=== PATIENT | female | born 1995 | race African-American/Black ===

== ENCOUNTER 2018-10-13 06:36 | Emergency (ER) | payer OTHER ==
[~2018-10-13] VITALS: Ht 167.6 cm; Wt 59.0 kg
[2018-10-13] MEDS ORDERED: ONDANSETRON HCL 4MG/2ML INJ IV STA (08:42)
[2018-10-13] MEDS ORDERED: DICYCLOMINE HCL 10MG CAPSULE PO ONE (08:45)
[2018-10-13] MEDS ORDERED: SODIUM CHLORIDE 0.9% 1,000 ML IV ONE (09:15)
[2018-10-13 09:33] LABS: CLARITY URINE CLOUDY (CLEAR); COLOR URINE YELLOW (YELLOW); KETONES URINE 1+ (NEGATIVE); LEUKOCYTE ESTERASE URINE 1+ (NEGATIVE); NITRITE URINE POSITIVE (NEGATIVE); OCCULT BLOOD URINE NEGATIVE (NEGATIVE); PH URINE 8.5 (4.5-8.0); PROTEIN URINE NEGATIVE (NEGATIVE); UROBILINOGEN URINE 0.2 E.U./dL (0.2-1.0)
[2018-10-13 09:35] LABS: BASOPHILS % 0.4 % (0.0-2.0); EOSINOPHILS % 1.8 % (0.0-5.0); HEMATOCRIT. 35.1 % (36.0-48.0); HEMOGLOBIN. 11.6 g/dL (12.0-16.0); LYMPHOCYTES % 21.6 % (20.0-50.0); MEAN CORPUSCULAR VOLUME 93.9 fL (81.0-99.0); MEAN PLATELET VOLUME 9.3 fl (7.4-10.4); MONOCYTES % 9.9 % (2.0-8.0); NEUTROPHILS % 66.3 % (40.0-76.0); PLATELET 257 x1000/uL (130-400); RED BLOOD CELL COUNT 3.74 mill/uL (4.2-5.4); RED CELL DISTRIBUTION WIDTH 14.3 % (11.6-14.6)
[2018-10-13 09:37] LABS: CHLORIDE 106 mEq/L (98-107)
[2018-10-13 09:38] LABS: PROTHROMBIN TIME 9.8 sec (9.6-11.0)
[2018-10-13 09:42] LABS: HCG SCREEN NEGATIVE
[2018-10-13] MEDS ORDERED: CEFTRIAXONE SODIUM 250 MG/VIAL IV ONE (10:45)
[2018-10-13 11:58] VITALS: BP 109/70
== END 2018-10-13 11:59 | disposition home or self-care (01) ==
LOC: ER 06:36
DX: N39.0 Urinary tract infection, site not specified (principal); A59.9 Trichomoniasis, unspecified
CPT/HCPCS: 36415; 80053; 81003; 81025; 83690; 84703; 85025; 85610; 87077; 87086; 87186; 96361; 96365; 96375; 99283; J0696; J2405; J7030; Z7610

== ENCOUNTER 2019-03-23 12:00 | Emergency (ER) | payer MEDICAID, OTHER ==
[~2019-03-23] VITALS: Ht 162.6 cm; Wt 66.0 kg
[2019-03-23] MEDS ORDERED: ONDANSETRON HCL 4MG/2ML INJ IV STA (12:33)
[2019-03-23] MEDS ORDERED: MORPHINE SULFATE 4 MG/ML CPJ (NOT FOR IM USE) IV STA (12:33)
[2019-03-23] MEDS ORDERED: SODIUM CHLORIDE 0.9% 1,000 ML IV ONE (12:33)
[2019-03-23 13:42] LABS: BASOPHILS % 0.7 % (0.0-2.0); HEMOGLOBIN. 11.9 g/dL (12.0-16.0); LYMPHOCYTES % 19.3 % (20.0-50.0); MEAN CORPUSCULAR VOLUME 96.7 fL (81.0-99.0); MEAN PLATELET VOLUME 8.3 fl (7.4-10.4); MONOCYTES % 7.3 % (2.0-8.0); NEUTROPHILS % 71.7 % (40.0-76.0); PLATELET 256 x1000/uL (130-400); RED BLOOD CELL COUNT 3.73 mill/uL (4.2-5.4); RED CELL DISTRIBUTION WIDTH 14.1 % (11.6-14.6)
[2019-03-23] MEDS ORDERED: MORPHINE SULFATE 4 MG/ML CPJ (NOT FOR IM USE) IV ONE (13:45)
[2019-03-23 13:54] LABS: CHLORIDE 111 mEq/L (98-107)
[2019-03-23 14:05] LABS: HCG SCREEN NEGATIVE
[2019-03-23 14:22] LABS: CLARITY URINE CLEAR (CLEAR); COLOR URINE YELLOW (YELLOW); KETONES URINE NEGATIVE (NEGATIVE); LEUKOCYTE ESTERASE URINE NEGATIVE (NEGATIVE); NITRITE URINE NEGATIVE (NEGATIVE); OCCULT BLOOD URINE 3+ (NEGATIVE); PH URINE 8.5 (4.5-8.0); PROTEIN URINE NEGATIVE (NEGATIVE); SPECIFIC GRAVITY URINE 1.018 (1.005-1.030)
[2019-03-23] MEDS ORDERED: IOHEXOL-300 100 ML BOTTLE ONE (15:15)
[2019-03-23 16:05] VITALS: BP 110/62
== END 2019-03-23 16:40 | disposition home or self-care (01) ==
LOC: ER 12:00
DX: R10.0 Acute abdomen (principal); R11.2 Nausea with vomiting, unspecified; R19.7 Diarrhea, unspecified; R03.0 Elevated blood-pressure reading, without diagnosis of hypertension
CPT/HCPCS: 36415; 74177; 80053; 81003; 81025; 83690; 84703; 85025; 96361; 96374; 96375; 96376; 99284; J2270; J2405; J7030; Q9967; Z7610

== ENCOUNTER 2019-05-15 13:33 | Emergency (ER) | payer MEDICAID ==
[~2019-05-15] VITALS: Ht 170.2 cm; Wt 59.0 kg
[2019-05-15] MEDS ORDERED: SODIUM CHLORIDE 0.9% 1,000 ML IV ONE ×2 (14:42→14:45)
[2019-05-15] MEDS ORDERED: ONDANSETRON HCL 4MG/2ML INJ IV STA (14:42)
[2019-05-15] MEDS ORDERED: FAMOTIDINE 20MG/2ML VIAL IV ONE (14:45)
[2019-05-15] MEDS ORDERED: LORAZEPAM 2MG/ML CPJ IV ONE (14:45)
[2019-05-15 14:54] LABS: CLARITY URINE TURBID (CLEAR); COLOR URINE AMBER (YELLOW); KETONES URINE TRACE (NEGATIVE); LEUKOCYTE ESTERASE URINE 2+ (NEGATIVE); NITRITE URINE NEGATIVE (NEGATIVE); OCCULT BLOOD URINE 2+ (NEGATIVE); PROTEIN URINE 1+ (NEGATIVE); SPECIFIC GRAVITY URINE 1.024 (1.005-1.030)
[2019-05-15 14:58] LABS: BASOPHILS % 0.4 % (0.0-2.0); EOSINOPHILS % 0.6 % (0.0-5.0); HEMATOCRIT. 36.3 % (36.0-48.0); HEMOGLOBIN. 12.1 g/dL (12.0-16.0); LYMPHOCYTES % 16.6 % (20.0-50.0); MEAN CORPUSCULAR HEMOGLOBIN 31.5 pg (28.0-32.0); MEAN CORPUSCULAR VOLUME 94.8 fL (81.0-99.0); MEAN PLATELET VOLUME 9.2 fl (7.4-10.4); NEUTROPHILS % 72.4 % (40.0-76.0); PLATELET 267 x1000/uL (130-400); RED BLOOD CELL COUNT 3.83 mill/uL (4.2-5.4); RED CELL DISTRIBUTION WIDTH 13.4 % (11.6-14.6)
[2019-05-15 15:04] LABS: CHLORIDE 106 mEq/L (98-107)
[2019-05-15 15:10] LABS: ETHANOL BLOOD < 10 mg/dL
[2019-05-15 15:14] LABS: CREATINE KINASE 303 IU/L (26-192)
[2019-05-15 15:15] LABS: HCG SCREEN NEGATIVE
[2019-05-15 15:17] LABS: CREATINE KINASE MB FRACTION 2.1 ng/mL (0.5-3.6)
[2019-05-15 15:23] LABS: METHADONE URINE SCREEN NEGATIVE (NEGATIVE); OPIATES URINE SCREEN NEGATIVE (NEGATIVE)
[2019-05-15 15:24] LABS: *AMPHETAMINES SCREEN URINE NEGATIVE (NEGATIVE); *BARBITURATES SCREEN URINE NEGATIVE (NEGATIVE); *BENZODIAZEPINES SCREEN URINE NEGATIVE (NEGATIVE); *COCAINE SCREEN URINE NEGATIVE (NEGATIVE); PHENCYCLIDINE URINE SCREEN NEGATIVE (NEGATIVE)
[2019-05-15 15:38] LABS: CANNABINOID URINE SCREEN PRESUMTIVE POSITIVE (NEGATIVE)
[2019-05-15] MEDS ORDERED: KETOROLAC 30MG/ML VIAL IV ONE (16:45)
[2019-05-15] MEDS ORDERED: MORPHINE SULFATE 4 MG/ML CPJ (NOT FOR IM USE) IV ONE (16:45)
[2019-05-15] MEDS ORDERED: ONDANSETRON HCL 4MG/2ML INJ IV ONE (16:45)
[2019-05-15] MEDS ORDERED: CEFTRIAXONE 1 G PREMIX 50 ML IV ONE (17:45)
[2019-05-15 18:32] VITALS: BP 101/65
== END 2019-05-15 18:39 | disposition home or self-care (01) ==
LOC: ER 13:33
DX: N39.0 Urinary tract infection, site not specified (principal); R10.33 Periumbilical pain
CPT/HCPCS: 36415; 71045; 74176; 80053; 80305; 80320; 81003; 81025; 82550; 82553; 83690; 84443; 84703; 85025; 93005; 96361; 96365; 96375; 96376; 99284; J0696; J1885; J2060; J2270; J2405; J3490; J7030; G0480

== ENCOUNTER 2022-10-24 12:20 | Emergency (ER) | payer MEDICAID ==
[~2022-10-24] VITALS: Ht 165.1 cm; Wt 75.0 kg
[2022-10-24 12:21] VITALS: BP 119/87
[2022-10-24 13:14] LABS: BASOPHILS % 0.9 % (0.0-2.0); EOSINOPHILS % 1.6 % (0.0-5.0); HEMOGLOBIN. 12.3 g/dL (12.0-16.0); LYMPHOCYTES % 17.2 % (20.0-50.0); MEAN CORPUSCULAR HEMOGLOBIN 30.9 pg (28.0-32.0); MEAN CORPUSCULAR VOLUME 93.1 fL (81.0-99.0); MEAN PLATELET VOLUME 8.1 fl (7.4-10.4); MONOCYTES % 7.2 % (2.0-8.0); NEUTROPHILS % 73.1 % (40.0-76.0); PLATELET 360 x1000/uL (130-400); RED BLOOD CELL COUNT 3.97 mill/uL (4.2-5.4); RED CELL DISTRIBUTION WIDTH 14.1 % (11.6-14.6)
[2022-10-24 13:20] LABS: CHLORIDE 105 mEq/L (98-107)
[2022-10-24 13:36] LABS: HCG SCREEN NEGATIVE
== END 2022-10-24 14:19 | disposition left against medical advice (07) ==
LOC: ER 12:20
DX: Z53.21 Procedure and treatment not carried out due to patient leaving prior to being seen by health care provider (principal)
CPT/HCPCS: 36415; 80053; 84703; 85025; 99281

== ENCOUNTER 2022-11-08 02:08 | Emergency (ER) | payer MEDICAID ==
[~2022-11-08] VITALS: Ht 162.6 cm; Wt 70.8 kg
[2022-11-08 02:19] VITALS: BP 107/74
[2022-11-08 03:31] LABS: BASOPHILS % 0.8 % (0.0-2.0); EOSINOPHILS % 0.1 % (0.0-5.0); HEMOGLOBIN. 10.9 g/dL (12.0-16.0); LYMPHOCYTES % 12.8 % (20.0-50.0); MEAN CORPUSCULAR VOLUME 93.7 fL (81.0-99.0); MEAN PLATELET VOLUME 9.1 fl (7.4-10.4); MONOCYTES % 9.4 % (2.0-8.0); NEUTROPHILS % 76.9 % (40.0-76.0); PLATELET 287 x1000/uL (130-400); RED BLOOD CELL COUNT 3.53 mill/uL (4.2-5.4); RED CELL DISTRIBUTION WIDTH 14.3 % (11.6-14.6)
[2022-11-08 03:38] LABS: CHLORIDE 108 mEq/L (98-107)
[2022-11-08 03:48] LABS: CLARITY URINE CLOUDY (CLEAR); COLOR URINE YELLOW (YELLOW); KETONES URINE 2+ (NEGATIVE); LEUKOCYTE ESTERASE URINE NEGATIVE (NEGATIVE); NITRITE URINE NEGATIVE (NEGATIVE); OCCULT BLOOD URINE 2+ (NEGATIVE); PROTEIN URINE 1+ (NEGATIVE); SPECIFIC GRAVITY URINE 1.034 (1.005-1.030)
[2022-11-08] MEDS ORDERED: KETOROLAC 30MG/ML VIAL IM ONE (05:00)
[2022-11-08] MEDS ORDERED: ONDANSETRON 4MG ODT PO ONE (05:00)
[2022-11-08] MEDS ORDERED: ACETAMINOPHEN 325MG TABLET PO ONE (05:30)
[2022-11-08] MEDS ORDERED: PANTOPRAZOLE 40MG DR TABLET PO ONE (05:30)
[2022-11-08] MEDS ORDERED: FAMO-135 MT (11:28)
[2022-11-08] MEDS ORDERED: ONDA4TAB11 PO (11:28)
== END 2022-11-08 06:21 | disposition left against medical advice (07) ==
LOC: ER 02:08
DX: R11.2 Nausea with vomiting, unspecified (principal)
CPT/HCPCS: 36415; 80053; 81003; 83690; 85025; 87086; 87186; 96372; 99283; J1885

== ENCOUNTER 2022-11-08 09:45 | Emergency (ER) | payer MEDICAID ==
[~2022-11-08] VITALS: Ht 160 cm; Wt 55.0 kg
[2022-11-08 09:50] VITALS: BP 118/72
[2022-11-08] MEDS ORDERED: ONDANSETRON 4MG ODT PO ONE (10:15)
[2022-11-08] MEDS ORDERED: MAGNESIUM/ALUMINUM HYDROXIDE/SIMETHICONE 30ML UDC PO ONE (10:15)
[2022-11-08] MEDS ORDERED: FAMOTIDINE 20MG TABLET PO ONE (10:15)
[2022-11-08 10:33] LABS: BASOPHILS % 0.5 % (0.0-2.0); EOSINOPHILS % 0.1 % (0.0-5.0); HEMATOCRIT. 34.1 % (36.0-48.0); HEMOGLOBIN. 11.5 g/dL (12.0-16.0); LYMPHOCYTES % 13.8 % (20.0-50.0); MEAN CORPUSCULAR HEMOGLOBIN 31.3 pg (28.0-32.0); MEAN CORPUSCULAR VOLUME 93.2 fL (81.0-99.0); MEAN PLATELET VOLUME 8.3 fl (7.4-10.4); MONOCYTES % 7.3 % (2.0-8.0); NEUTROPHILS % 78.3 % (40.0-76.0); PLATELET 298 x1000/uL (130-400); RED BLOOD CELL COUNT 3.65 mill/uL (4.2-5.4); RED CELL DISTRIBUTION WIDTH 13.9 % (11.6-14.6)
[2022-11-08 10:44] LABS: CHLORIDE 108 mEq/L (98-107)
[2022-11-08] MEDS ORDERED: ONDANSETRON HCL 4MG/2ML INJ IM NR (11:00)
[2022-11-08 11:16] LABS: CLARITY URINE TURBID (CLEAR); COLOR URINE DARK YELLOW (YELLOW); KETONES URINE 3+ (NEGATIVE); LEUKOCYTE ESTERASE URINE TRACE (NEGATIVE); NITRITE URINE NEGATIVE (NEGATIVE); OCCULT BLOOD URINE 2+ (NEGATIVE); PROTEIN URINE 2+ (NEGATIVE); SPECIFIC GRAVITY URINE 1.037 (1.005-1.030)
[2022-11-08] MEDS ORDERED: ONDA4TAB11 PO (11:28)
[2022-11-08] MEDS ORDERED: FAMO-135 MT (11:28)
== END 2022-11-08 11:36 | disposition home or self-care (01) ==
LOC: ER 10:05
DX: R11.2 Nausea with vomiting, unspecified (principal)
CPT/HCPCS: 36415; 80053; 81003; 81025; 83690; 85025; 96372; 99284; J2405; Q0162

== ENCOUNTER 2024-10-12 07:55 | Emergency (ER) | payer MEDICAID, OTHER ==
[~2024-10-12] VITALS: Ht 165.1 cm; Wt 72.0 kg
[~2024-10-12 07:55] MED LIST: FAMO-135 MT; ONDA-239 PO
[2024-10-12 08:07] VITALS: O2SAT 98
[2024-10-12 08:15] VITALS: BP 98/68; PULSE 68; RESP 18; TEMP 36.9; O2SAT 98
[2024-10-12] MEDS ORDERED: DEXAMETHASONE 10 MG/ML VIAL IV ONE (08:30)
[2024-10-12] MEDS: DEXAMETHASONE 10 MG/ML VIAL PO NR (08:53)
== END 2024-10-12 11:00 | disposition home or self-care (01) ==
LOC: ER 07:55
DX: B34.9 Viral infection, unspecified (principal); J02.9 Acute pharyngitis, unspecified; F12.90 Cannabis use, unspecified, uncomplicated; Z79.899 Other long term (current) drug therapy
CPT/HCPCS: 99283; 87430; 87070; J1100